=== PATIENT | female | born 1990 | race Hispanic/Latino ===

== ENCOUNTER 2019-07-15 09:52 | Inpatient (IN) | payer BC ==
[~2019-07-15] VITALS: Ht 152.4 cm; Wt 74.4 kg
[2019-07-15] VITALS (7 sets, daily range): BP systolic 129–141; BP diastolic 78–95
[2019-07-15] MEDS ORDERED: LACTATED RINGERS 1000ML 1,000 ML IV PRN (10:08)
[2019-07-15] MEDS ORDERED: OXYTOCIN-LR 20 UNITS/1000 ML 1,000 ML IV SCH ×2 (10:15→17:15)
[2019-07-15] MEDS ORDERED: OXYTOCIN 10 USP UNITS/ML 20 UNIT in LACTATED RINGERS 1000ML 1,000 ML IV SCH (10:15)
[2019-07-15 11:23] LABS: BASOPHILS % (AUTO) 0.4 % (0.0-5.0); EOSINOPHILS % (AUTO) 0.3 % (0.0-8.0); HEMATOCRIT 31.6 % (36-48); LYMPHOCYTES % (AUTO) 22.9 % (21.0-51.0); MEAN CORPUSCULAR HGB CONC 31.6 g/dL (32.0-36.0); MEAN CORPUSCULAR VOLUME 85.2 fL (79-99); MONOCYTES % (AUTO) 7.6 % (3.0-13.0); NEUTROPHILS % (AUTO) 68.2 % (40.0-77.0); PLATELET COUNT (AUTO) 155 K/uL (130-400); RED BLOOD CELL COUNT(AUTO) 3.71 MIL/uL (4.00-5.50); WHITE BLOOD COUNT (AUTO) 9.8 K/uL (4.8-10.8)
[2019-07-15 11:25] LABS: APPEARANCE,URINE Clear (CLEAR); BILIRUBIN,URINE Negative (NEGATIVE); COLOR,URINE Yellow (YELLOW); GLUCOSE, URINE (UA) Negative (NEGATIVE); KETONES,URINE Negative (NEGATIVE); LEUKOCYTE ESTERASE ,URINE Small (NEGATIVE); NITRATE,URINE Negative (NEGATIVE); OCCULT BLOOD,URINE Negative (NEGATIVE); PH,URINE 6.5 (5.0-8.0); PROTEIN,URINE Negative (NEGATIVE); UROBILINOGEN,URINE 0.2 mg/dL (0.2-1.0)
[2019-07-15 11:29] LABS: BACTERIA,URINE Few /HPF (None Seen); CREATININE 0.8 mg/dL (0.5-1.5); POTASSIUM 3.4 mmol/L (3.5-5.1); RBC,URINE 0-1 /HPF (0-1); SQUAMOUS EPITHELIAL CELL,UR Moderate /HPF (0-2)
[2019-07-15 11:32] LABS: INR 0.88 (0.85-1.15); PARTIAL THROMBOPLASTIN TIME 27.3 SEC (26.3-35.5); PROTHROMBIN TIME 9.5 SEC (9.6-11.6)
[2019-07-15 11:34] LABS: ALBUMIN 2.7 g/dL (3.5-5.0); BILIRUBIN,TOTAL 0.2 mg/dL (0.2-1.0); TOTAL PROTEIN, SERUM 6.6 g/dL (6.0-8.3); URIC ACID 4.1 mg/dL (2.6-7.2)
[2019-07-15] MEDS ORDERED: NALOXONE HCL 0.4 MG/1 ML ML IV PRN (12:45)
[2019-07-15] MEDS ORDERED: LACTATED RINGERS 500 ML 500 ML IV PRN (12:45)
[2019-07-15] MEDS ORDERED: EPHEDRINE SULFATE 50 MG/ML AMPULE IVP PRN (12:45)
[2019-07-15] MEDS ORDERED: ROPIVACAINE 0.2% 100ML VIAL 100 ML EP SCH (13:00)
--- NOTE | 2019-07-15 16:50 | NUR ---
ASSESSMENT: RECEIVED FROM L&D VIA BED TO 124 WITH AT SIDE. POST OP VAG DELIVERY BABY BOY AT 1622. FUNDUS FIRM AT U LOCHIA SM RUBRA. PERINEUM INTACT. PATTI LEGS NUMB FROM EPIDURAL. IV OF LR 20 UNITS PITOCIN INF WELL TO RFA AT 125MLS AN HR. IV SITE HEALTHY. EXPLAINED POC AND UNDERSTANDING VERBALIZED, CALL COLE AT HER SIDE.
--- NOTE | 2019-07-15 17:07 | NUR ---
BONDING: BABY SKIN TO SKIN.
[2019-07-15] MEDS ORDERED: ACETAMINOPHEN-CODEINE 300/30MG TAB PO PRN (17:15)
[2019-07-15] MEDS ORDERED: WITCH HAZEL 1 PAD TP PRN (17:15)
[2019-07-15] MEDS ORDERED: DIPH,PERTUSS(ACELL),TET VAC/PF 0.5 ML VIAL IM PRN (17:15)
[2019-07-15] MEDS ORDERED: MEASLES/MUMPS/RUBELLA VACCINE, LIVE 0.5 ML/VIAL SQ PRN (17:15)
[2019-07-15] MEDS ORDERED: LANOLIN 30GM OINTMENT TP PRN (17:15)
[2019-07-15] MEDS ORDERED: ACETAMINOPHEN 325 MG TAB PO PRN (17:15)
[2019-07-15] MEDS ORDERED: BENZOCAINE/LANOLIN/ALOE VERA 60 ML AEROSOL TP PRN (17:15)
[2019-07-15] MEDS: IBUPROFEN 600 MG TABLET PO PRN (18:50)
--- NOTE | 2019-07-15 18:57 | NUR ---
JPS=[id number] 2 HOUR
[2019-07-15] MEDS: DOCUSATE SODIUM 100 MG CAP PO SCH (21:31)
[2019-07-16 00:28] VITALS: BP 121/76
[2019-07-16] MEDS: IBUPROFEN 600 MG TABLET PO PRN ×3 (00:29→13:30)
[2019-07-16 04:27] VITALS: BP 125/80
[2019-07-16 06:53] LABS: HEMATOCRIT 29.1 % (36-48); MEAN CORPUSCULAR HEMOGLOBIN 26.3 pg (27.0-33.0); MEAN CORPUSCULAR HGB CONC 30.6 g/dL (32.0-36.0); MEAN CORPUSCULAR VOLUME 86.1 fL (79-99); PLATELET COUNT (AUTO) 127 K/uL (130-400); RED BLOOD CELL COUNT(AUTO) 3.38 MIL/uL (4.00-5.50); RED CELL DISTRIBUTION WIDTH 15.2 % (11.0-15.5); WHITE BLOOD COUNT (AUTO) 14.5 K/uL (4.8-10.8)
[2019-07-16 07:29] VITALS: BP 130/94
[2019-07-16 08:10] LABS: HEPATITIS Bs ANTIGEN SCREEN P Negative (Negative)
[2019-07-16] MEDS: DOCUSATE SODIUM 100 MG CAP PO SCH (09:39)
[2019-07-16 11:48] VITALS: BP 147/57
[2019-07-16 16:29] VITALS: BP 136/94
--- NOTE | 2019-07-16 16:55 | NUR ---
DISCHARGE PT LEFT UNIT VIA WHEELCHAIR, WITH BABY IN ARMS, ACCOMPANIED BY SIGNIFICANT OTHER. DENIED PAIN AND HAD NO COMPLAINTS. BABY STRAPPED IN CAR SEAT. PT AND BABY TRANSPORTED BY PERSONAL VEHICLE.
== END 2019-07-16 16:55 | disposition home or self-care (01) | DRG 807 ==
LOC: LDH 09:52 → OBSVTOIN 09:52 → WSH 16:58
PROVIDERS: ADMIT Obstetrics & Gynecology; ATTEND Obstetrics & Gynecology
PROC: 10E0XZZ Delivery of Products of Conception, External Approach (ICD-10-PCS; principal; 2019-07-15)
PROC: 10907ZC Drainage of Amniotic Fluid, Therapeutic from Products of Conception, Via Natural or Artificial Opening (ICD-10-PCS; 2019-07-15)
PROC: 3E0R3BZ Introduction of Anesthetic Agent into Spinal Canal, Percutaneous Approach (ICD-10-PCS; 2019-07-15)
PROC: 00HU33Z Insertion of Infusion Device into Spinal Canal, Percutaneous Approach (ICD-10-PCS; 2019-07-15)
DX: O69.81X0 Labor and delivery complicated by cord around neck, without compression, not applicable or unspecified (principal); Z37.0 Single live birth; Z3A.38 38 weeks gestation of pregnancy
CPT/HCPCS: 36415; 80053; 81001; 84550; 85025; 85027; 85384; 85610; 85730; 86592; 86850; 86900; 86901; 87088; 87340; A4314; A4606; G0378; J2590; J7120

== ENCOUNTER 2019-09-02 05:50 | Day surgery (SDC) | payer BC ==
[2019-08-29 11:40] VITALS: BP 143/85
[2019-08-29 11:53] LABS: BASOPHILS % (AUTO) 0.7 % (0.0-5.0); EOSINOPHILS % (AUTO) 0.5 % (0.0-8.0); HEMATOCRIT 39.2 % (36-48); LYMPHOCYTES % (AUTO) 34.1 % (21.0-51.0); MEAN CORPUSCULAR HEMOGLOBIN 27.1 pg (27.0-33.0); MEAN CORPUSCULAR HGB CONC 30.9 g/dL (32.0-36.0); MEAN CORPUSCULAR VOLUME 87.9 fL (79-99); MONOCYTES % (AUTO) 5.7 % (3.0-13.0); NEUTROPHILS % (AUTO) 58.8 % (40.0-77.0); PLATELET COUNT (AUTO) 198 K/uL (130-400); RED BLOOD CELL COUNT(AUTO) 4.46 MIL/uL (4.00-5.50); RED CELL DISTRIBUTION WIDTH 16.7 % (11.0-15.5)
[2019-09-02] VITALS (16 sets, daily range): BP systolic 106–134; BP diastolic 57–87
[~2019-09-02] VITALS: Ht 152.4 cm; Wt 62.0 kg
[2019-09-02] MEDS ORDERED: LACTATED RINGERS 1000ML 1,000 ML IV ONE (07:06)
[2019-09-02] MEDS: CEFAZOLIN SODIUM 1 GM VIAL ONE ×2 (07:14→09:05)
[2019-09-02] MEDS ORDERED: ONDANSETRON HCL 4 MG/2 ML VIAL ONE (08:44)
[2019-09-02] MEDS ORDERED: LIDOCAINE PF 2% 5ML ABBOJECT ONE (08:44)
[2019-09-02] MEDS ORDERED: NEOSTIGMINE 5MG/5ML SYR IV ONE (08:44)
[2019-09-02] MEDS ORDERED: GLYCOPYRROLATE 1 MG/5 ML SYRINGE ONE (08:44)
[2019-09-02] MEDS ORDERED: PROPOFOL 10 MG/ML 20ML VIAL IV ONE (08:44)
[2019-09-02] MEDS ORDERED: DEXAMETHASONE SOD PHOSPHATE 10MG/ML 1ML VIAL ONE (08:44)
[2019-09-02] MEDS ORDERED: ROCURONIUM 10MG/1ML SYR 10 MG/ML ML ONE (08:44)
[2019-09-02] MEDS ORDERED: FENTANYL CITRATE PF 50 MCG/1 ML 5ML AMP IV ONE (08:44)
[2019-09-02] MEDS ORDERED: PHENYLEPHRINE HCL 10 MG/ML 1ML VIAL IV ONE (09:18)
[2019-09-02] MEDS ORDERED: BUPIVACAINE/PF 0.5% 30ML VIAL ONE (09:21)
== END 2019-09-02 11:30 | disposition home or self-care (01) ==
LOC: DAH 05:50
PROVIDERS: ATTEND Obstetrics & Gynecology
DX: Z30.2 Encounter for sterilization (principal)
CPT/HCPCS: 36415 ×2; 58670; 84703; 85025; 86850 ×2; 86900 ×2; 86901 ×2; A4213; A4215; A4221; A4222; A4223; A4351; A4663; A4930; A6260; C1769 ×2; G0168; J0690; J1100; J2001; J2370; J2405; J2704; J2710; J3010; J3490 ×2; J7120 ×2; U0003